=== PATIENT | female | born 1975 | race Caucasian/White ===

== ENCOUNTER → 2023-09-27 15:38 | Outpatient (REF) | payer BC, SELFPAY | LOC: HWRAD 15:38 | PROVIDERS: ATTENDING PHYSICIAN Otolaryngology; FAMILY PHYSICIAN Family Medicine | DX: R51.9 Headache, unspecified (principal); J01.10 Acute frontal sinusitis, unspecified; J01.30 Acute sphenoidal sinusitis, unspecified | CPT/HCPCS: 70450 ==

== ENCOUNTER → 2023-10-19 19:51 | Outpatient (REF) | payer BC, SELFPAY | LOC: MRI 19:51 | PROVIDERS: ATTENDING PHYSICIAN Nurse Practitioner Family; FAMILY PHYSICIAN Family Medicine | DX: H57.9 Unspecified disorder of eye and adnexa (principal); H53.9 Unspecified visual disturbance; R51.9 Headache, unspecified | CPT/HCPCS: 70553; A9575 ==

== ENCOUNTER → 2024-05-01 09:13 | Outpatient (REF) | payer BC, SELFPAY | LOC: HWRAD 09:13 | PROVIDERS: ATTENDING PHYSICIAN Obstetrics & Gynecology Gynecology; FAMILY PHYSICIAN Family Medicine; REFERRING PHYSICIAN Internal Medicine Endocrinology, Diabetes & Metabolism | DX: Z12.31 Encounter for screening mammogram for malignant neoplasm of breast (principal); E04.2 Nontoxic multinodular goiter; Z78.0 Asymptomatic menopausal state | CPT/HCPCS: 76536; 77063; 77067; 77080; 77081 ==

== ENCOUNTER → 2024-12-10 12:00 | Outpatient (REF) | payer BC, SELFPAY | LOC: PAVMRI 12:00 | PROVIDERS: ATTENDING PHYSICIAN Family Medicine | DX: M54.2 Cervicalgia (principal); M54.12 Radiculopathy, cervical region | CPT/HCPCS: 72141 ==